=== PATIENT | male | born 1995 | race Two or more races ===

== ENCOUNTER 2019-04-29 05:02 | Inpatient (IN) | payer BC ==
--- NOTE | 2019-04-29 05:30 | NUR ---
PUJA ARRIVED FROM HOME, AMBULATORY ACCOMPANIED BY GIRLFRIEND WITH RIGHT DISTAL RADIUS FRACTURE. SITE WITH SPLINT WRAPPED WITH RADHA WRAP. BILATERAL LUNG CERON CLEAR, NO SOB. PAIN TOLERABLE ON AFFECTED EXTREMITY. CONSENTED FOR ORIF OF RIGHT RADIUS. KEPT NPO, CHECKLIST DONE.KEPT COMFORTABLE. Addendum: 04/29/19 at 0756 by SUSAN CANTU RN CAME WITH LEFT RADIUS FRACTURE. NOT RIGHT.
[2019-04-29 08:00] VITALS: BP 120/63
--- NOTE | 2019-04-29 08:00 | NUR ---
MS/RN - Assessment Patient is A/O x 4, here for left distal radius fracture under the care of Dr. Lucero. Left forearm splint in place. Patient able to move and wiggle his fingers, denies numbness or tingling sensation. Patient was educated regarding the importance of non weight bearing on the LFA. Saline lock on the right hand is patent, intact with no signs of infiltration. Currently on NPO for left distal radius ORIF. Fall precautions maintained. All needs attended and met. Will continue to monitor closely.
--- NOTE | 2019-04-29 09:20 | NUR ---
MS/RN - Notes Patient taken to OR for procedure, pre-op checklist completed, consent signed, endorsed accordingly.
[2019-04-29] MEDS ORDERED: BUPIVACAINE 0.5 % PF 150 MG/30 ML VIAL ONE (10:32)
[2019-04-29] MEDS ORDERED: FENTANYL PF 100MCG/2ML AMPUL ONE ×2 (10:35→10:36)
[2019-04-29] MEDS ORDERED: MIDAZOLAM HCL 2 MG/2ML VIAL ONE (10:36)
[2019-04-29] MEDS ORDERED: HYDROMORPHONE 1 MG/1 ML DISP.SYRIN ONE (12:37)
[2019-04-29] MEDS ORDERED: KETOROLAC TROMETHAMINE INJ 30 MG/ML VIAL ONE (13:00)
[2019-04-29] MEDS ORDERED: HYDROMORPHONE INJ 2 MG/ML DISP.SYRIN ONE (13:06)
[2019-04-29 13:50] VITALS: BP 144/91
--- NOTE | 2019-04-29 13:50 | NUR ---
MS/RN - Notes Received patient from PACU, s/p left distal radius ORIF, awake, A/O x 4, no apparent distress seen, left arm sling in place. Post-op vitals done per protocol. Per Dr. Singer, discharge patient when stable, NWB on LUE, follow up with him in 2 weeks, start on regular diet, and give Hooper 10/325 1 tab po once prior to discharge.
[2019-04-29] MEDS ORDERED: HYDROCODONE/APAP 10/325MG 1 EA TABLET PO PRN (14:00)
[2019-04-29 14:05] VITALS: BP 150/78
[2019-04-29 14:20] VITALS: BP 145/78
[2019-04-29 14:35] VITALS: BP 144/75
--- NOTE | 2019-04-29 14:40 | NUR ---
MS/RN - PA Order Patient c/o itchiness noted rashes on his nose, chin, and chest area. Aleksandra Keys, obtained an order to give Benadryl 25 mg IVP Q6H PRN.
[2019-04-29] MEDS ORDERED: diphenhydrAMINE HCL 50 MG/ML VIAL IV PRN (15:00)
--- NOTE | 2019-04-29 15:00 | NUR ---
MS/RN - Discharge Patient alert and oriented, rashes on chest, nose, and chin area noted with improvement post Benadryl administration. Patient discharged home in stable condition, remain afebrile, denies any pain, no c/o dizziness, not in any form of distress. Reviewed discharge instructions with patient and he verbalized full understanding of all teachings including non weight bearing on LUE and follow-up care with Dr. Singer within 2 weeks. Seek immediate medical attention for worsening symptoms, chest pain, shortness of breath, palpitations, intractable nausea and vomiting, diarrhea, weakness, loss of consciousness, neurological deficit, or any other emergent concerns. All belongings with patient and he deny any missing items. Saline lock removed on the right hand with catheter tip intact, no redness, no swelling noted at the site. Discharge paperwork signed and copies were given per protocol. Accompanied to the lobby via wheelchair and transported by private car by girlfriend.
== END 2019-04-29 15:00 | disposition home or self-care (01) | DRG 512 ==
LOC: DS 05:02 → MED 05:05
PROVIDERS: ADMIT Student in an Organized Health Care Education/Training Program; ATTEND Student in an Organized Health Care Education/Training Program
PROC: 0PSJ04Z Reposition Left Radius with Internal Fixation Device, Open Approach (ICD-10-PCS; principal; 2019-04-29)
DX: S52.502A Unspecified fracture of the lower end of left radius, initial encounter for closed fracture (principal); W19.XXXA Unspecified fall, initial encounter; Y92.9 Unspecified place or not applicable
CPT/HCPCS: 73100-TC; G0378; J0690; J1170; J1200; J1885; J2250; J2704; J3010; J3490